=== PATIENT | male | born 1960 | race Caucasian/White ===

== ENCOUNTER 2019-10-09 08:15 | Outpatient (CLI) | payer BC, SELFPAY ==
[2019-10-09 08:46] LABS: Basophils Absolute Auto 0.1 K/mm3 (0.0-0.1); Basophils Percent Auto 1.1 % (0.2-1.2); Eosinophils Absolute Auto 0.4 K/mm3 (0-0.3); Eosinophils Percent Auto 3.3 % (0-4.4); Hematocrit 49.3 % (42.0-52.0); Hemoglobin 16.5 g/dL (14.0-18.0); Immature Granulocyte Absolute 0.04 K/mm3 (0.00-0.031); Immature Granulocyte Percent A 0.4 % (0-0.5); Lymphocytes Absolute Auto 3.17 K/mm3 (0.9-3.2); Lymphocytes Percent Auto 30.3 % (18.3-44.2); Mean Corpuscular HGB Conc 33.5 g/dl (32-36); Mean Corpuscular Hemoglobin 31.3 pg (26-34); Mean Corpuscular Volume 93.5 fl (80-100); Mean Platelet Volume 11.8 fl (7.4-10.4); Monocytes Absolute Auto 0.9 K/mm3 (0.1-0.6); Monocytes Percent Auto 8.9 % (2.6-8.5); Neutrophils Absolute Auto 5.9 K/mm3 (1.3-6.7); Platelet Count Result 184 k/mm3 (150-375); Red Blood Count 5.27 M/mm3 (4.6-6.20); Red Cell Distribution Width 13.5 % (11.5-14.5); White Blood Count 10.5 K/mm3 (4.5-10.0)
[2019-10-09 10:50] LABS: Alanine Aminotransferase 41 U/L (4-50); Albumin Level 4.3 g/dL (3.5-5.1); Alkaline Phosphatase 87 U/L (38-126); Aspartate Amino Transferase 33 U/L (17-59); Bilirubin,Total 0.6 mg/dL (0.2-1.3); Blood Urea Nitrogen 12 mg/dL (9-20); Calcium 9.2 mg/dL (8.4-10.2); Carbon Dioxide 23 mmol/L (22-30); Chloride 101 mmol/L (98-107); Estimated Glomerular Filt Rate > 60; Glucose 253 mg/dL (75-110); Potassium 4.1 mmol/L (3.4-5.0); Sodium 132 mmol/L (137-145)
[2019-10-09 12:26] LABS: Triglycerides 963 mg/dL (<150)
[2019-10-09 12:27] LABS: Cholesterol > 650 mg/dL (0-200); LDL Cholesterol Direct 133 mg/dL; Thyroid Stimulating Hormone > 100.000 uIU/mL (0.465-4.680)
== END 2019-10-09 08:16 | disposition home or self-care (01) ==
PROVIDERS: PCP Family Medicine; Visit Provider Physician Assistant Medical
DX: Z00.00 Encounter for general adult medical examination without abnormal findings (principal)
CPT/HCPCS: 36415; 80053; 80061; 84443; 85025

== ENCOUNTER 2020-01-13 08:47 | Outpatient (CLI) | payer BC, SELFPAY ==
[2020-01-13 09:43] LABS: Alanine Aminotransferase 41 U/L (4-50); Albumin Level 4.4 g/dL (3.5-5.1); Alkaline Phosphatase 68 U/L (38-126); Anion Gap 8 mmol/L (8-16); Aspartate Amino Transferase 30 U/L (17-59); Bilirubin,Total 0.5 mg/dL (0.2-1.3); Blood Urea Nitrogen 14 mg/dL (9-20); Calcium 9.1 mg/dL (8.4-10.2); Carbon Dioxide 25 mmol/L (22-30); Chloride 101 mmol/L (98-107); Cholesterol 298 mg/dL (0-200); Estimated Glomerular Filt Rate > 60; Glucose 265 mg/dL (75-110); HDL Direct 32 mg/dL; Potassium 4.1 mmol/L (3.4-5.0); Sodium 134 mmol/L (137-145); Triglycerides 457 mg/dL (<150)
[2020-01-13 09:54] LABS: LDL Cholesterol Direct 58 mg/dL
[2020-01-13 13:30] LABS: Hemoglobin A1C 10.9 % (<5.7)
== END 2020-01-13 08:48 | disposition home or self-care (01) ==
PROVIDERS: PCP Family Medicine; Visit Provider Family Medicine
DX: E11.9 Type 2 diabetes mellitus without complications (principal); E03.9 Hypothyroidism, unspecified
CPT/HCPCS: 36415; 80053; 80061; 83036; 84443

== ENCOUNTER 2020-04-25 10:27 | Outpatient (CLI) | payer BC, SELFPAY ==
[2020-04-25 11:30] LABS: Alanine Aminotransferase 27 U/L (4-50); Albumin Level 4.3 g/dL (3.5-5.1); Alkaline Phosphatase 66 U/L (38-126); Anion Gap 12 mmol/L (8-16); Aspartate Amino Transferase 26 U/L (17-59); Bilirubin,Total 0.5 mg/dL (0.2-1.3); Blood Urea Nitrogen 14 mg/dL (9-20); Calcium 9.9 mg/dL (8.4-10.2); Carbon Dioxide 21 mmol/L (22-30); Chloride 103 mmol/L (98-107); Cholesterol 195 mg/dL (0-200); Estimated Glomerular Filt Rate > 60; Glucose 102 mg/dL (75-110); HDL Direct 30 mg/dL; Potassium 4.4 mmol/L (3.4-5.0); Sodium 136 mmol/L (137-145); Triglycerides 355 mg/dL (<150)
[2020-04-25 11:41] LABS: LDL Cholesterol Direct 56 mg/dL
[2020-04-25 12:16] LABS: Hemoglobin A1C 7.1 % (<5.7)
[2020-04-25 12:17] LABS: Thyroid Stimulating Hormone Reflex < 0.015 uIU/mL (0.465-4.68)
[2020-04-25 13:42] LABS: Free T4 Free Thyroxine Reflex 2.66 ng/dL (0.78-2.19)
== END 2020-04-25 10:28 | disposition home or self-care (01) ==
LOC: ANHLAB 10:29
PROVIDERS: PCP Family Medicine; Visit Provider Family Medicine
DX: E78.5 Hyperlipidemia, unspecified (principal)
CPT/HCPCS: 36415; 80053; 80061; 83036; 84439; 84443

== ENCOUNTER 2020-05-06 08:15 | Emergency (ER) | payer BC, SELFPAY ==
--- NOTE | ~2020-05-06 | CT_ITS ---
EXAMINATION: CT brain wo con DATE: 05/06/2020 08:24 INDICATION: Right hemiparesis and aphasia TECHNIQUE: Computed tomography (CT) of the head was performed without intravenous contrast. Sagittal and coronal reconstructions were performed. The mA was adjusted according to patient size. Iterative reconstruction technique was employed. The dose-length product was 605.33 mGy-cm. COMPARISON: None FINDINGS: A few small regions of encephalomalacia in the anterior left frontal lobe, one in the anterior right frontal lobe and one in the right parietal lobe consistent with chronic infarcts. No acute intracrani al hemorrhage, acute infarction or abnormal extra axial fluid collection. There is however a hyperden se posterior branch of the left middle cerebral artery suspicious for acute thrombus. There is mild s cattered white matter hypoattenuation consistent with chronic small vessel ischemic disease. Ventricl es are normal and symmetric. No mass/mass effect. Intracranial calcified cerebral atherosclerosis is noted. Opacification of the small right sphenoid sinus. The orbits and mastoid air cells are normal. IMPRESSION: 1. Hyperdense posterior branch of the left middle cerebral artery suspicious for acute thrombus altho ugh there is no evident associated acute infarct although hyperacute infarcts can be occult on CT. Dr Ruthann Muñoz discussed these findings with Dr. Smart at 8:29 AM. 2. Several small region of encephalomalacia consistent with chronic infarcts in the lateral frontal l obe and right parietal lobe. 3. Mild scattered white matter hypoattenuation consistent with chronic small vessel ischemic disease. Reviewed, dictated and finalized at location A. OMER ASSISTANCE ASSOCIATE IMPRESSION: 1. Hyperdense posterior branch of the left middle cerebral artery suspicious fo r acute thrombus although there is no evident associated acute infarct although hyperacute infarcts can be occult on CT. Dr. Muñoz discussed these findings with Dr. Smart at 8:29 AM. 2. Several small region of encephalomalacia consistent with chronic infarcts in the lateral frontal lobe and right parietal lobe. 3. Mild scattered white matter hypoattenuation consistent with chronic small ve ssel ischemic disease.
--- NOTE | ~2020-05-06 | CT_ITS ---
EXAMINATION: CTA brain carotid DATE: 05/06/2020 09:38 INDICATION: Right hemiparesis. Aphasia. TECHNIQUE: Computed tomographic angiography (CTA) of the head was performed with 100 mL Omnipaque-350 intravenous contrast. CTA of the neck was performed with intravenous contrast. Automated exposure co ntrol and iterative reconstruction technique were employed. The dose-length product was 1104.80 mGy-c m. Maximum intensity projection and volume rendered 3D-reconstructions were created by the dana moreno on a separate workstation. COMPARISON: Head CT 05/06/2020 FINDINGS: HEAD CTA: There are infarcts in the left frontal lobe and right frontal and parietal lobes. There is no intracranial hemorrhage or abnormal intracranial mass lesion. The ventricles are normal in size. T he mastoid air cells are normal. The orbits are normal. The paranasal sinuses are clear. Left vertebr al artery is dominant. There is no significant stenosis of basilar artery or the posterior cerebral a rteries. The column of contrast in right internal carotid artery is very small and ends in cavernous carotid artery. There is reconstitution of flow in supraclinoid internal carotid artery. There is tot al occlusion of cervical left internal carotid artery. There is reconstitution of flow in the petrous segment of the internal carotid artery. There is mild stenosis of the distal internal carotid artery . There is thrombus in an M2 branch of left middle cerebral artery that was hyperdense on the noncont rast CT. There is no significant stenosis of the anterior cerebral arteries. Anterior communicating a rtery is normal. The posterior communicating arteries are normal. There is no aneurysm. NECK CTA: There is mild emphysema. There are no pathologically enlarged lymph nodes. There is mild st enosis of proximal left coronary artery. There is no significant stenosis of the vertebral arteries. There is near-occlusion stenosis of proximal right internal carotid artery by NASCET criteria. There is total occlusion of left cervical internal carotid artery. There is moderate cervical spondylosis. IMPRESSION: 1. Age-indeterminate infarcts in the left frontal lobe and right frontal and parietal lobes. 2. Thrombus in a left M2 middle cerebral artery branch. 3. Near-occlusion stenosis of cervical right internal carotid artery. Total occlusion of cavernous ri ght internal carotid artery with supraclinoid reconstitution. 4. Total occlusion of cervical left internal carotid artery with petrous reconstitution. Reviewed, dictated and finalized at location B. SHER DIAL IMPRESSION: 1. Age-indeterminate infarcts in the left frontal lobe and right frontal and pa rietal lobes. 2. Thrombus in a left M2 middle cerebral artery branch. 3. Near-occlusion stenosis of cervical right internal carotid artery. Total occ lusion of cavernous right internal carotid artery with supraclinoid reconstitut ion. 4. Total occlusion of cervical left internal carotid artery with petrous recons titution.
--- NOTE | ~2020-05-06 | XR_ITS ---
EXAMINATION: XR chest 1V portable DATE: 05/06/2020 09:06 INDICATION: Right hemiparesis TECHNIQUE: frontal view of the chest was obtained. COMPARISON: Chest radiograph dated 12/11/2011 FINDINGS: The lungs remain clear with no focal airspace opacities, pulmonary edema, pleural effusion or pneumot horax. The cardiomediastinal silhouette is normal. IMPRESSION: 1. No acute cardiopulmonary disease. Reviewed, dictated and finalized at location A. ATOR RUNNER
--- NOTE | 2020-05-06 08:18 | ECG_ITS ---
Measurements Intervals [place] Rate: 103 P: 77 NV: 132 QRS: 82 QRSD: 105 T: 20 QT: 354 QTc: 465 Interpretive Statements SINUS TACHYCARDIA POSSIBLE LEFT ATRIAL ENLARGEMENT MINIMAL Q WAVES- INFERIOR LEADS BORDERLINE ST ABNORMALITY- INF/LAT LEADS BORDERLINE ECG Electronically Signed On 05-06-2020 8:37:28 RN LONG TERM CARE by Rosalino Greene D.O.
--- NOTE | 2020-05-06 08:32 | ED.NEUROSD ---
HPI - Neuro Symptoms/Deficit General Chief Complaint: Suspected CVA Stated Complaint: poss cva Time Seen by Provider: 05/06/20 08:16 Source: RN notes reviewed History of Present Illness HPI Narrative: Patient presents to emergency department from home for CVA. Patient's states the patient got up as normal this morning and was acting fine approximate 45 minutes ago at approximately 7:45 AM he was sitting at the table when he began to have difficulty speaking as well as she noted some right-sided facial droop and weakness in his right arm. Patient has been having some feelings of heaviness and weakness in his right side for the past 4 to 5 weeks has been worked up by his PCP was felt to have early Parkinson's and recently started on carbidopa levodopa. Patient was acting like his normal self this morning the states when he started to act funny she did check his blood sugar was 67 at that time which she did give him some juice and states she did notice mild improvement but then symptoms again worsen patient is not currently on any blood thinners she denies any previous history of stroke Related Data Home Medications Medication Instructions Recorded Confirmed metformin 500 mg tablet,extended 500 mg PO QPM 10/12/19 05/04/20 release 24 hr psyllium husk 3.4 gram/5.4 gram 1 tbsp PO DAILY 05/04/20 05/04/20 oral powder Allergies Allergy/AdvReac Type Severity Reaction Status Date / Time No Known Allergies Allergy Unknown Verified 05/04/20 14:06 Review of Systems Review of Systems: Narrative: Gen.: Denies fevers or chills Eyes: Denies eye pain or visual change ENT: Denies congestion Respiratory: Denies shortness of breath or cough CV: Denies chest pain or palpitations GI: Denies abdominal pain nausea, emesis or diarrhea Musculoskeletal: Denies back pain or muscle pain Neuro: See HPI Skin: Denies rash Except as documented, all other systems reviewed and negative [facility] Past Medical History Medical History (Updated 05/06/20 @ 12:55 by Praneeth Smart DO) Overweight (BMI 25.0-29.9) Parkinsonian features Type 2 diabetes mellitus without complications Umbilical hernia Social History Social History Smoking packs per day: 1.5 Smoking cigarettes per day: 30.0 Years smoked: 40 Smoking pack-years: 60.00 Smoking status: Current every day smoker Tobacco type: cigarettes Alcohol intake: current Exam Narrative: Exam Narrative: APPEARANCE: No acute distress, nontoxic, resting in bed EYES: EOMI, PERRL HEENT: Normocephalic, atraumatic, OMM RESPIRATORY: No respiratory distress Clear to auscultation bilaterally with no rhonchi wheezing or rales. CARDIOVASCULAR: Regular rate and rhythm without murmurs rubs or gallops. ABDOMINAL: Soft, nontender, nondistended, no rebound or guarding MUSCULOSKELETAl: Moves all extremities. No clubbing, cyanosis or edema. NEURO: Awake and alert. Following commands, speech normal, no focal deficits SKIN:: Warm, dry. No rashes lesions or abrasions PSYCHIATRIC: Normal affect/mood, Course Course Emergency Course: After another shoulder evaluation patient been reevaluated proximally 15 minutes later with complete resolution of his symptoms no talking in full sentences Called and discussed with Dr. Rodas at [facility] for stroke. Recommend CTA at this time Patient with waxing and waning symptoms he had a another episode of return of symptoms that then improved and then symptoms again now are present and persist Called back and discussed with Dr. Rodas who reviewed the patient's CT and CTA. At this time with stroke seen on CTA does NOT recommend any TPA be given. She does request the patient be transferred to the [facility] emergency department for evaluation for possible IR intervention Discussed with patient and family need for transfer in agreement at this time we discussed my conversations with Dr. Rodas and rec
[2020-05-06 08:34] VITALS: BP 145/81; PULSE 128; RESP 21; TEMP 36.7; O2SAT 21; O2SAT 99
[2020-05-06 09:04] LABS: Basophils Absolute Auto 0.1 K/mm3 (0.0-0.1); Basophils Percent Auto 0.9 % (0.2-1.2); Eosinophils Absolute Auto 0.2 K/mm3 (0-0.3); Eosinophils Percent Auto 1.7 % (0-4.4); Hemoglobin 17.8 g/dL (14.0-18.0); Immature Granulocyte Absolute 0.02 K/mm3 (0.00-0.031); Immature Granulocyte Percent A 0.2 % (0-0.5); Lymphocytes Absolute Auto 2.73 K/mm3 (0.9-3.2); Lymphocytes Percent Auto 30.4 % (18.3-44.2); Mean Corpuscular HGB Conc 33.6 g/dl (32-36); Mean Corpuscular Volume 92.3 fl (80-100); Mean Platelet Volume 11.5 fl (7.4-10.4); Monocytes Percent Auto 10.8 % (2.6-8.5); Platelet Count Result 249 k/mm3 (150-375); Red Blood Count 5.74 M/mm3 (4.6-6.20); Red Cell Distribution Width 13.1 % (11.5-14.5)
[2020-05-06 09:15] LABS: Anion Gap 16 mmol/L (8-16); Blood Urea Nitrogen 14 mg/dL (9-20); Carbon Dioxide 21 mmol/L (22-30); Chloride 103 mmol/L (98-107); Estimated CRCL calculation 103 ml/min; Estimated Glomerular Filt Rate > 60; Glucose 204 mg/dL (75-110); Potassium 3.6 mmol/L (3.4-5.0); Sodium 140 mmol/L (137-145)
[2020-05-06 09:16] LABS: INR 0.9; Prothrombin Time 13.2 Seconds (11.1-14.7)
[2020-05-06 09:17] LABS: Partial Thromboplastin Time 26.4 SECONDS (22.3-36.8)
[2020-05-06 09:20] LABS: Glucose Point of Care 199 (65-105)
[2020-05-06 09:27] LABS: Troponin I < 0.012 ng/mL (0.000-0.034)
[2020-05-06 09:48] VITALS: BP 126/67; PULSE 87; RESP 20; O2SAT 97
--- NOTE | 2020-05-06 10:28 | PC.NURSE ---
Pt called out and states that pt is getting worse. This RN in room. Pt has increased right sided facial drooping and increased grabbled, slurred speech. When pt arrived pt was able to give and state where he was. Pt is now unable to clearly state his and where he is at. Informed Dr. Smart of this. Dr. Smart stated that pt needed to lay flat on his back. This RN placed bed flat. Informed pt that wanted pt to lay flat.
--- NOTE | 2020-05-06 11:38 | PC.NURSE ---
[facility] accepted transfer to [facility] ETA 30 min Trip#[id number]
--- NOTE | 2020-05-06 12:14 | PC.NURSE ---
V [id number] Transfer to [facility] per Dr Flowers a weather check was done for an aircraft. [facility] [address] Dominguez talked with [facility] and they decided ground transportation . [facility] cancelled. [facility] was called for transfer ETA 30min Trip # [id number] dispatch stated that as soon as ALS crew cleared [place] they would take call. At 1205 today [facility] called for update Dispatch stated that the crew that was here got kicked on a 911 and our transfer would be at least 90min. Per Dr Flowers I was told to upgrade [facility] to light and sirens.
--- NOTE | 2020-05-06 12:22 | PC.NURSE ---
[facility] arrived for transfer to [facility] [id number]
--- NOTE | 2020-05-06 12:23 | PC.NURSE ---
[facility] had No ALS truck
== END 2020-05-06 12:30 | disposition short-term general hospital (02) ==
PROVIDERS: Emergency Provider Emergency Medicine; PCP Family Medicine
DX: I63.9 Cerebral infarction, unspecified (principal); E11.9 Type 2 diabetes mellitus without complications; Z79.84 Long term (current) use of oral hypoglycemic drugs; E66.3 Overweight; Z68.26 Body mass index [BMI] 26.0-26.9, adult; F17.210 Nicotine dependence, cigarettes, uncomplicated; R29.708 NIHSS score 8; R00.0 Tachycardia, unspecified; R94.31 Abnormal electrocardiogram [ECG] [EKG]; I66.09 Occlusion and stenosis of unspecified middle cerebral artery; I65.23 Occlusion and stenosis of bilateral carotid arteries
CPT/HCPCS: 36415; 70450; 70496; 70498; 71045; 80048; 82948; 84484; 85025; 85610; 85730; 93005; 99285; Q9967

== ENCOUNTER 2020-07-26 08:01 | Outpatient (CLI) | payer BC, SELFPAY ==
[2020-07-26 08:46] LABS: Alanine Aminotransferase 26 U/L (4-50); Albumin Level 3.9 g/dL (3.5-5.1); Alkaline Phosphatase 99 U/L (38-126); Anion Gap 13 mmol/L (8-16); Aspartate Amino Transferase 25 U/L (17-59); Bilirubin,Total 0.6 mg/dL (0.2-1.3); Blood Urea Nitrogen 10 mg/dL (9-20); Calcium 9.4 mg/dL (8.4-10.2); Carbon Dioxide 23 mmol/L (22-30); Chloride 105 mmol/L (98-107); Cholesterol 93 mg/dL (0-200); Estimated Glomerular Filt Rate > 60; Glucose 112 mg/dL (75-110); HDL Direct 21 mg/dL; Potassium 3.8 mmol/L (3.4-5.0); Sodium 141 mmol/L (137-145); Triglycerides 123 mg/dL (<150)
[2020-07-26 08:57] LABS: LDL Cholesterol Direct 36 mg/dL
[2020-07-26 09:00] LABS: Hemoglobin A1C 6.6 % (<5.7)
[2020-07-26 09:44] LABS: Thyroid Stimulating Hormone Reflex < 0.015 uIU/mL (0.465-4.68)
[2020-07-26 11:41] LABS: Free T4 Free Thyroxine Reflex 2.38 ng/dL (0.78-2.19)
== END 2020-07-26 08:02 | disposition home or self-care (01) ==
PROVIDERS: PCP Family Medicine; Visit Provider Family Medicine
DX: E78.5 Hyperlipidemia, unspecified (principal)
CPT/HCPCS: 36415; 80053; 80061; 83036; 84439; 84443

== ENCOUNTER 2020-08-05 15:31 | Outpatient (CLI) | payer BC, SELFPAY | END 2020-08-05 15:32 | disposition home or self-care (01) | LOC: ANHCOVIDVC 15:31 | PROVIDERS: PCP Family Medicine | DX: Z23 Encounter for immunization (principal) | CPT/HCPCS: 0001A; 91300 ==

== ENCOUNTER 2020-08-26 15:29 | Outpatient (CLI) | payer BC, SELFPAY | END 2020-08-26 15:30 | disposition home or self-care (01) | LOC: ANHCOVIDVC 15:29 | PROVIDERS: PCP Family Medicine | DX: Z23 Encounter for immunization (principal) | CPT/HCPCS: 0002A; 91300 ==

== ENCOUNTER 2020-10-10 07:26 | Outpatient (CLI) | payer BC, SELFPAY ==
[2020-10-10 08:29] LABS: Thyroid Stimulating Hormone < 0.015 uIU/mL (0.465-4.680)
== END 2020-10-10 07:27 | disposition home or self-care (01) ==
PROVIDERS: PCP Family Medicine; Visit Provider Family Medicine
DX: E03.9 Hypothyroidism, unspecified (principal)
CPT/HCPCS: 36415; 84443

== ENCOUNTER 2020-12-21 19:23 | Emergency (ER) | payer BC, SELFPAY ==
--- NOTE | ~2020-12-21 | XR_ITS ---
EXAMINATION: XR chest 1V portable INDICATION: Cough TECHNIQUE: Portable AP chest at 1937 hours COMPARISON: 05/06/2020 FINDINGS: The lungs are free of acute opacities. There is no pleural effusion or pneumothorax. The ca rdiomediastinal silhouette is normal. IMPRESSION: 1. No acute cardiopulmonary abnormality. Reviewed, dictated and finalized at location A.
[2020-12-21 19:24] VITALS: BP 117/75; PULSE 80; RESP 18; TEMP 36.7; O2SAT 93
--- NOTE | 2020-12-21 19:30 | ECG_ITS ---
Measurements Intervals [place] Rate: 82 P: 76 HI: 169 QRS: 75 QRSD: 94 T: 53 QT: 391 QTc: 457 Interpretive Statements SINUS RHYTHM MINIMAL Q WAVES- INFERIOR LEADS BORDERLINE ECG Electronically Signed On 12-21-2020 19:48:52 CDT by Rosalino Greene D.O.
--- NOTE | 2020-12-21 19:31 | ED.GENADULT ---
HPI - General Adult General Chief complaint: Unspecified Stated complaint: unresponsiveness History of Present Illness HPI narrative: 60 yo male w/ h/o CVA, DM, htn presents to the ED for unresponsive episode. He was sitting on the couch when he had a a fit of coughing. His then noted that he was staring blankly then his eyes rolled up and to the right. He would not respond to her. This lasted about 1-2 minutes. The patient says he remembers feeling strange and dizzy. His vision then went black. He does not believe that he ever lost consciousness. He denies any other complaints. History is somewhat limited by expressive aphasia Related Data Home Medications Medication Instructions Recorded Confirmed aspirin 325 mg tablet 325 mg PO DAILY 07/15/20 10/28/20 lansoprazole 30 mg capsule,delayed 30 mg PO DAILY 07/15/20 10/28/20 release memantine 5 mg tablet 5 mg PO QAM 07/15/20 10/28/20 Allergies Allergy/AdvReac Type Severity Reaction Status Date / Time No Known Allergies Allergy Unknown Verified 12/21/20 19:45 Review of Systems Review of Systems: All systems reviewed & are unremarkable except as noted in HPI and below Constitutional: Constitutional: Denies chills and Denies fever(s) Eyes: Eyes: Reports as per HPI ENT: Reports system reviewed and no additional complaints, except as documented Cardiovascular: Cardiovascular: Denies chest pain and Denies palpitations Respiratory: Respiratory: Reports cough and Denies dyspnea Gastrointestinal: Gastrointestinal: Denies abdominal pain and Denies nausea Genitourinary: Genitourinary: Reports no additional male genitourinary complaints Musculoskeletal: Musculoskeletal: Denies back pain Neurologic: Reports as per HPI [facility] Past Medical History Medical History Acute right MCA stroke Dysphagia as late effect of cerebrovascular accident (CVA) Expressive aphasia Gastrostomy tube in place Hemiparesis affecting right side as late effect of cerebrovascular accident (CVA) Overweight (BMI 25.0-29.9) Parkinsonian features Type 2 diabetes mellitus without complications Umbilical hernia Social History Social History Smoking packs per day: 1.5 Smoking cigarettes per day: 30.0 Years smoked: 40 Smoking pack-years: 60.00 Tobacco type: cigarettes Alcohol intake: current Gender identity (if verbalized by the patient): Male Exam Const: General: healthy appearing, no acute distress and alert Orientation/consciousness: patient oriented x3 HENMT: Head: normal to inspection Neck: Neck: normal visual inspection and no lymphadenopathy Chest: Chest palpation & inspection: no tenderness Resp: Effort & Inspection: normal respiratory effort Auscultation: clear to auscultation bilaterally, no rales, no rhonchi and no wheezes Cardio: Jugular venous distension: no JVD Rate: regular rate Rhythm: regular rhythm Heart sounds: no murmurs GI: Inspection: non-distended GI Palp: Yes Soft to palpation and No Tenderness to palpation present (GI) Skin: General skin exam: normal color Neuro: General: patient oriented x3 and moves all extremities Speech: Expressive aphasia present Extrem: General: no edema Other: right hemiparesis Psych: Appearance: well kempt Affect: normal affect Course Vital Signs Vital signs: Vital Signs Temperature 36.7 C 12/21/20 19:24 Pulse Rate 80 12/21/20 19:24 Respiratory Rate 18 12/21/20 19:24 Blood Pressure 117/75 12/21/20 19:24 Pulse Oximetry 93 12/21/20 19:24 Temperature 36.7 C 12/21/20 19:24 Pulse Rate 80 12/21/20 19:24 Respiratory Rate 18 12/21/20 19:24 Blood Pressure 117/75 12/21/20 19:24 Pulse Oximetry 93 12/21/20 19:24 Medical Decision Making Medical Records Medical records reviewed: Yes I reviewed the external patient's medical records. Vital Signs Vital Signs
[2020-12-21] MEDS: SODIUM CHLORIDE 0.9% IV 1,000 ML 999 ML IV CONT (19:50)
[2020-12-21 19:55] LABS: Basophils Absolute Auto 0.1 K/mm3 (0.0-0.1); Basophils Percent Auto 0.7 % (0.2-1.2); Eosinophils Absolute Auto 0.2 K/mm3 (0-0.3); Eosinophils Percent Auto 2.1 % (0-4.4); Hematocrit 45.6 % (42.0-52.0); Hemoglobin 14.9 g/dL (14.0-18.0); Immature Granulocyte Absolute 0.02 K/mm3 (0.00-0.031); Immature Granulocyte Percent A 0.2 % (0-0.5); Lymphocytes Absolute Auto 2.78 K/mm3 (0.9-3.2); Lymphocytes Percent Auto 34.2 % (18.3-44.2); Mean Corpuscular HGB Conc 32.7 g/dl (32-36); Mean Corpuscular Hemoglobin 30.5 pg (26-34); Mean Corpuscular Volume 93.4 fl (80-100); Mean Platelet Volume 10.9 fl (7.4-10.4); Monocytes Absolute Auto 0.7 K/mm3 (0.1-0.6); Monocytes Percent Auto 8.7 % (2.6-8.5); Neutrophils Absolute Auto 4.4 K/mm3 (1.3-6.7); Neutrophils Percent Auto 54.1 % (45.5-73.1); Platelet Count Result 229 k/mm3 (150-375); Red Blood Count 4.88 M/mm3 (4.6-6.20); Red Cell Distribution Width 13.1 % (11.5-14.5); White Blood Count 8.1 K/mm3 (4.5-10.0)
[2020-12-21 20:04] LABS: Anion Gap 14 mmol/L (8-16); Blood Urea Nitrogen 23 mg/dL (9-20); Calcium 9.5 mg/dL (8.4-10.2); Carbon Dioxide 22 mmol/L (22-30); Chloride 102 mmol/L (98-107); Estimated CRCL calculation 102 ml/min; Estimated Glomerular Filt Rate > 60; Glucose 241 mg/dL (65-110); Potassium 4.1 mmol/L (3.4-5.0); Sodium 138 mmol/L (137-145)
[2020-12-21 21:32] VITALS: BP 114/81; PULSE 67; RESP 17; O2SAT 94
[2020-12-21 23:01] VITALS: BP 106/87; PULSE 66; RESP 19; O2SAT 96
== END 2020-12-21 23:03 | disposition home or self-care (01) ==
PROVIDERS: Emergency Provider Emergency Medicine; PCP Family Medicine
DX: R55 Syncope and collapse (principal); E11.9 Type 2 diabetes mellitus without complications; F17.210 Nicotine dependence, cigarettes, uncomplicated
CPT/HCPCS: 36415; 71045; 80048; 85025; 93005; 96360; 99284; J7030

== ENCOUNTER 2021-01-25 12:30 | Outpatient (RCR) | payer BC, SELFPAY ==
[2020-11-04 08:37] VITALS: BP_SYST 90
--- NOTE | 2020-11-04 09:37 | OTOPEVAL ---
OCCUPATIONAL THERAPY INITIAL EVALUATION REPORT 11/04/20 Thank you for referring Osmani Harden to [facility].? The patient is scheduled to be seen for therapy? 2x/week for 5 weeks. Please review, sign, date and return this plan of care LIZZIE. I agree with and certify that the following plan of care is medically necessary. Referring Physician Date Referring Provider: Lebron Goff MD *OT Outpatient Evaluation Start: 11/04/20 08:37 Therapy Assessment Status Assessment Status Assessment Status Evaluation Outpatient Past Medical History Past Medical History Source of Past Medical History Recalled from Previous Visit, Confirmed with Patient/Family Neurological History Hx Cerebrovascular Accident (CVA) Yes: 05/06/20 Cardiovascular History Hx Cardiac Disorders No Significant History Respiratory History Hx Respiratory Disorders No Significant History Gastrointestinal History Hx Gastrointestinal Disorders No Significant History Genitourinary History Hx Genitourinary Disorders No Significant History Musculoskeletal History Hx Other Musculoskeletal Disorders Yes: Right RTC surgery Hematological History Hx Hematological Disorders No Significant History Endocrine History Hx Diabetes Yes Hx Hypothyroidism Yes HEENT History Hx HEENT Disorders No Significant History Integumentary History Hx Skin Disorders No Significant History Reproductive History Hx Reproductive Disorders No Significant History Psychosocial History Hx Psychiatric Disorders No Significant History Pain History History of Any Previous or Ongoing No Significant History Instance of Pain Anesthesia History Hx Anesthesia Reactions No Significant History Evaluation Information Problem Diagnosis CVA Onset 05/06/2020 Subjective Information Patient is s/p acute care at Query Text:As Reported By Patient/ Lili ~2 weeks, transferred Family to [facility] ~2 months, and ~3 months of home health therapy. He has been receiving OT, PT, and ST. He is here today with his , Crista. He has some garbled speech and his reports all history. Prior Level of Function Activity Level (Last 3 Months) Occupation Was laid of 2/2 COVID. Hand Dominance Right Activity of Daily Living Ability Needs Some Help Indoor/Home Mobility Needs Some Help Community Mobility Needs Some Help Stairs Ability Dependent Cooking No Cleaning No Laundry
--- NOTE | 2020-11-04 10:49 | PTOPEVAL ---
PHYSICAL THERAPY EVALUATION AND PLAN OF CARE 11-04-20 Thank you for referring Osmani Harden to [facility].? Pato is scheduled to be seen for therapy? 2 x/week for 5 weeks. Please review, sign, date and return this plan of care LIZZIE. I agree with and certify that the following plan of care is medically necessary. Referring Physician Date Attending Provider: Lebron Goff MD PT Outpatient Evaluation Document 11/04/20 09:25 ALEXUS (Rec: 11/04/20 10:49 ALEXUS [id number]) Past Medical History Source of Past Medical History Family/Significant Other Musculoskeletal History Hx Orthopedic Surgery Yes: R rotator cuff surgery 2006 Hematological History Hx Hematological Disorders No Significant History Endocrine History Hx Diabetes Yes Hx Hypothyroidism Yes Hx Other Medical Conditions Yes: had COVID vaccine Evaluation Information Problem Diagnosis CVA with R weakness Onset May 06, 2020 Subjective Information since CVA have had in pt rehab Query Text:As Reported By Patient/ and [facility]; discharged from [facility] Family about 2 weeks; continues to do leg exercises from [facility]; Prior Level of Function Activity Level (Last 3 Months) 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;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 Dominance Right Activity of Daily Living Ability Independent Indoor/Home Mobility Independent Community Mobility Independent Stairs Ability Independent Functional Cognition (Planning, Shopping Independent , Taking Medications) Cooking Yes Cleaning Yes Laundry Yes Shopping Yes Driving Yes Home Setting Home Type House Environmental Barriers Ramp Living Situation With Spouse Mobility Assistive Devices (Used Last 3 Cane, Large Based Quad,Lift, Months) Chair,Wheelchair, Manual Orthotic/Prosthetic Devices Right Upper Extremity Orthosis ,Right Lower Extremity Orthosis Bathroom Environment Bathtub, Standard Bathing Equipment Grab Bars,Hand Held Shower,Tub Seat With Back Comments Additional Prior Level of Function since CVA, living with his in- Comments laws, who have a more accessible home; works from home, she is
--- NOTE | 2020-11-04 15:01 | STOPEVAL ---
SPEECH THERAPY INITIAL EVALUATION: Thank you for referring Osmani Harden to [facility].? The patient is scheduled to be seen for therapy? 2x/week for 5 weeks. Please review, sign, date and return this plan of care LIZZIE. I agree with and certify that the following plan of care is medically necessary. Referring Physician Date Attending Provider: Lebron Goff MD Outpatient Past Medical History Past Medical History Source of Past Medical History Recalled from Previous Visit, Confirmed with Patient/Family Neurological History Hx Cerebrovascular Accident (CVA) Yes: 05/06/20 Cardiovascular History Hx Cardiac Disorders No Significant History Respiratory History Hx Respiratory Disorders No Significant History Gastrointestinal History Hx Other Gastrointestinal Disorders Yes: recent removal of PEG r/t dysphagia Genitourinary History Hx Genitourinary Disorders No Significant History Musculoskeletal History Hx Other Musculoskeletal Disorders Yes: Right RTC surgery Hematological History Hx Hematological Disorders No Significant History Endocrine History Hx Diabetes Yes Hx Hypothyroidism Yes HEENT History Hx HEENT Disorders No Significant History Integumentary History Hx Skin Disorders No Significant History Reproductive History Hx Reproductive Disorders No Significant History Psychosocial History Hx Psychiatric Disorders No Significant History Pain History History of Any Previous or Ongoing No Significant History Instance of Pain Anesthesia History Hx Anesthesia Reactions No Significant History Evaluation Information Problem Diagnosis CVA Onset 05/06/2020 Subjective Information Patient is s/p acute care at Query Text:As Reported By Patient/ [facility] ~2 weeks, transferred Family to [facility] [place] ~2 months, and ~3 months of home health therapy. He has been receiving OT, PT, and ST. He is here today with his , Crista. He has some garbled speech and his reports all history. Prior Level of Function Activity Level (Last 3 Months) Occupation Was laid off 2/2 COVID. Hand Dominance Right Activity of Daily Living Ability Needs Some Help Indoor/Home Mobility Needs Some Help Community Mobility Needs Some Help Cooking No Cleaning No Laundry No Shopping No Driving No Home Setting Home Type House,Multiple Levels En
--- NOTE | 2020-12-01 17:11 | STOPEVAL ---
SPEECH THERAPY PROGRESS NOTE AND PLAN OF CARE UPDATE: Thank you for referring Osmani Harden to [facility].? The pt is exhibiting progress in speech and language. The patient is scheduled to be seen for therapy?x2/week for 5 weeks. Please review, sign, date and return this plan of care LIZZIE. I agree with and certify that the following plan of care is medically necessary. Referring Physician Date Attending Provider: Lebron Goff MD * Language RE Evaluation Auditory Comprehension Complex Yes/No Questions (% Accuracy (0- 80 100)) Auditory Comprehension of Complex 100 Directives (% Accuracy (0-100)) Auditory Comprehension of Simple 100 Paragraphs (% Accuracy (0-100)) Overall Auditory Comprehension Ability Mild Deficits Additional Auditory Comprehension As a result of therapy pt has Comments improved in the following: - Respond to complex yes/no questions with 75% accuracy: MET - Respond to complex level directives with 80% accuracy: MET - Respond to simple paragraph level information with 90% accuracy: MET Reading Comprehension Comprehension: 5-7 Words (% Accuracy (0- 91 100)) Comprehension of Simple Paragraphs (% 80 Accuracy (0-100)) Reading Comprehension Comments as a result of therapy pt has achieved the following: Demonstrates comprehension of 5-7 word statements, questions , &/or directives with 91% accuracy and demonstrated ability to comprehend complex information in sentences with 85-90% accuracy Response Latency Mild Deficits Overall Reading Comprehension Ability mild/mod Verbal Expression Earth Speech WFL Automatic Cued Speech (% Accuracy (0-100 100 )) Open Ended Cued Speech (% Accuracy (0- 60 100)) WH Questions (% Accuracy (0-100)) 60 Stating Object Function (% Accuracy (0- 80 100)) Factors Limiting Verbal Function Aphasia,Apraxia Overall Verbal Expression Ability mod/severe Comments Related to Verbal Expression severe decline in intelligibility is exhibited. word retrieval/anomia is improving. Apraxia Evaluation Apraxia Evaluation Oral Volitional Movement (%) 100 Oral Volitional Comments pt was able to recognize errors and self
[2020-12-08 12:59] VITALS: BP_SYST 90
--- NOTE | 2020-12-08 13:40 | OTOPEVAL ---
OCCUPATIONAL THERAPY RE-EVALUATION AND DISCHARGE SUMMARY 12/08/20 Patient presents today for OT re-evaluation following 5 weeks of outpatient OT focused on ROM and neuromuscular facilitation to the right hemiparetic UE. Unfortunately the patient has not shown progress toward improved functional strength. Patient's flexibility has remained WFL and he is able to complete self-passive ROM. He and his are independent with positioning strategies and splint schedule to help inhibit future contractures. No further skilled OT indicated at this time. D/C with patient independent with HEP. Thank you for referring Osmani Harden to [facility]. Please review, sign, date and return this D/C Note LIZZIE. I agree with and certify that the following plan of care is medically necessary. Referring Physician Date Referring Provider: Lebron Goff MD Evaluation Information Problem Diagnosis CVA Onset 05/06/2020 Subjective Information Pato Keen , has Query Text:As Reported By Patient/ participated in 8 outpatient Family OT sessions for right sided hemiplegia s/p CVA. Treatment interventions include education on positioning, passive ROM, weight bearing and muscle facilitory techniques to try to improve right UE strength and ROM. Right shoulder continues to be subluxed 1 finger width. Pato is aphasic and has difficulty describing how ADLs are going at home, but nods yes when asked if bathing, dressing, and toileting tasks are getting easier for him. He also reports that his passive ROM HEP is going well and has gotten easier for him to complete. He states he does his HEP ~2x/week. Pain Assessment Timing of Pain Assessment Timing of Pain Assessment Assessment Pain Scale Pain Scale Used Numeric (1 - 10) Self Report Pain Assessment Right Shoulder(s) Reported Pain Level 0 Lowest Pain Intensity 0 Greatest Pain Intensity 6 Pain Aggravating Factors Exercise/Activity Pain Score Pain Score 0: Self Report Upper Extremity Range of Motion General Upper Extremity Range of Motion Gross Upper Extremity Range of Motion (R) shoulder is subluxed 1 Comments finger width. Scapular/ Shoulder Range of Motion Right Shoulder Flexion - Active 0 Shoulder Flexion - Passive 90 Shoulder Extension - Active 0 Shoulder Abduction - Active
--- NOTE | 2020-12-08 15:02 | PTOPEVAL ---
PHYSICAL THERAPY DISCHARGE 12-08-20 Refer to the clinical summary below, for his status today, compared to the initial evaluation. His improvements for PT were minimal-- met goal for hip adduction strength in supine, no falls and home exercise program education. He has a home exercise program and is walking short distances with the small based quad cane and CGA. Discharge was discussed with his and she was disappointed, stating that she wanted him to continue PT treatments. Discussed with her that his status is about the same as the initial eval and to continue therapy, we have to justify with improvements and changes in his status. Reinforced to her that he needs to continue with the leg exercises at home, walking as much as he can and if he starts to have more strength in R leg or something changes, PT can resume with a new physician's order. Thank you for referring Osmani Harden to [facility].? Please review, sign, date and return this Discharge Report LIZZIE. I agree with and certify that the following plan of care is medically necessary. Referring Physician Date Attending Provider: Lebron Goff MD Document 12/08/20 13:55 ALEXUS (Rec: 12/08/20 15:02 ALEXUS [id number]) Assessment Status Discharge Pain Assessment Timing of Pain Assessment Timing of Pain Assessment Assessment Self Report Self Report Pain Level 0 Pain Score Pain Score 0: Self Report Lower Extremity Muscle Strength Testing General Lower Extremity Strength Gross Lower Extremity Strength functional strength R LE: supine: heel slide with hip flex to 10'; hip abduction unable to perform; hip adduction 3-/5; knee and ankle no active motion; bridge x 20 reps, lift ~ 75% range; Transfer Assessment Chair Transfer Assessment Ambulation Assistive Devices None Chair Transfer Destination w/c <> mat Chair Transfer Technique Stand Step Pivot Cues Needed for Chair Transfer None Bed Mobility Assessment Bed Mobility Bed Type Mat Supine to Sit Ability Standby Assistance Sit to Supine Ability Minimum Assistance X 1 Cues Needed for Bed Mobility Tactile Bed Mobility Comments sit to supine, requires assist with trunk and R LE; supine to sit, hook L LE under R LE and used momentum and LE's hooked on edge of mat, to assist raising trunk to upright Balance Assessment Tinetti Balance Assessment Sitting Balance Steady, safe Ability to Arise Able, w/o using arms Attempts to Arise Able, requires >1 attempt Immediate Standing Balance Steady with support Standing Balance Steady, wide stance Nudged Response
--- NOTE | 2021-01-05 13:52 | STOPEVAL ---
SPEECH THERAPY RE EVALUATION AND PLAN OF CARE UPDATE: Thank you for referring Osmani Harden to [facility].? The patient is scheduled to be seen for therapy?2x/week for 4 weeks. Please review, sign, date and return this plan of care LIZZIE. I agree with and certify that the following plan of care is medically necessary. Referring Physician Date Attending Provider: Lebron Goff MD Language Evaluation Auditory Comprehension Auditory Comprehension of Moderate 100 Paragraphs (% Accuracy (0-100)) Auditory Comprehension of Complex 100 Paragraphs (% Accuracy (0-100)) Additional Auditory Comprehension within functional limits; no Comments further goals at this time Reading Comprehension Comprehension of Simple Paragraphs (% 80 Accuracy (0-100)) Comprehension of Functional Reading 50 Materials Overall Reading Comprehension Ability mild/mod Verbal Expression Automatic Cued Speech (% Accuracy (0-100 100 )) Open Ended Cued Speech (% Accuracy (0- 100 100)) WH Questions (% Accuracy (0-100)) 80 Confrontational Naming (% Accuracy (0- 100 100)) Confrontational Naming Comments distortions interfere Comments Related to Verbal Expression fair to good recall; however, intelligibility is moderately to severely impaired related to distortions, substitutions due to apraxia. In sentence formation given a sentence, intelligibility was too impaired to determine adequacy of the sentence. -divergent naming: distortions , independently used slow speech to improve intelligibility. Very slow but recall was related to speech versus naming ability. Apraxia Evaluation Apraxia Evaluation Oral Volitional Movement (%) 100 Oral Volitional Comments pt was able to recognize errors and self correct. Imitation of Single Sounds (%) 96 Imitation of Single Sounds Comments substituted /d/ for /j/ Automatic Speech (%) 100 Imitation of One-Syllable Words (%) 100 Imitation of One-Syllable Word Comments did not substitute d for j but a slight note of a vowel distortion was exhibited Imitation of Bi-Syllable Words (%) 100 Imitation of Multi-Syllable Words (%) 60 Imitation of Multi-Syllable Word distortions, substitutions and Comments vowel errors Diadokokinetic Rates Accuracy Precise,Rate Normal, Rhyth
--- NOTE | 2021-02-02 08:35 | PCSTNOTE ---
This treatment is being continued on visit number [id number]. Please see documentation on both accounts to view progress. Completed interventions, outcomes, and problems have been marked as Inactive to facilitate the copying of the Care plan routine for recurring accounts.
== END 2021-01-26 08:15 | disposition home or self-care (01) ==
LOC: ANHST 12:30
PROVIDERS: PCP Family Medicine; Visit Provider Family Medicine
DX: I63.511 Cerebral infarction due to unspecified occlusion or stenosis of right middle cerebral artery (principal); I69.391 Dysphagia following cerebral infarction
CPT/HCPCS: 92507; 92523; 97014; 97110; 97112; 97116; 97161; 97166; 97530; G0283

== ENCOUNTER 2021-02-02 09:39 | Outpatient (CLI) | payer BC, SELFPAY ==
[2021-02-02 10:12] LABS: Alanine Aminotransferase 49 U/L (4-50); Albumin Level 4.5 g/dL (3.5-5.1); Alkaline Phosphatase 81 U/L (38-126); Anion Gap 10 mmol/L (8-16); Aspartate Amino Transferase 37 U/L (17-59); Bilirubin,Total 0.5 mg/dL (0.2-1.3); Blood Urea Nitrogen 16 mg/dL (9-20); Calcium 9.7 mg/dL (8.4-10.2); Carbon Dioxide 24 mmol/L (22-30); Chloride 106 mmol/L (98-107); Estimated Glomerular Filt Rate > 60; Glucose 161 mg/dL (65-110); Sodium 140 mmol/L (137-145)
[2021-02-02 11:37] LABS: Thyroid Stimulating Hormone Reflex 0.062 uIU/mL (0.465-4.68)
[2021-02-02 13:09] LABS: Free T4 Free Thyroxine Reflex 1.28 ng/dL (0.78-2.19)
[2021-02-02 21:55] LABS: Total Triiodothyronine (T3) 1.03 NG/ML (0.97-1.69)
== END 2021-02-02 09:40 | disposition home or self-care (01) ==
LOC: ANHLAB 09:42
PROVIDERS: PCP Family Medicine; Visit Provider Family Medicine
DX: E78.5 Hyperlipidemia, unspecified (principal); E11.9 Type 2 diabetes mellitus without complications; E03.9 Hypothyroidism, unspecified
CPT/HCPCS: 36415; 80053; 83036; 84439; 84443; 84480

== ENCOUNTER 2021-03-06 12:30 | Outpatient (RCR) | payer BC, SELFPAY ==
[2021-01-26 08:16] VITALS: BP_SYST 90
--- NOTE | 2021-02-02 08:35 | PCSTNOTE ---
The treatment documented on this account is a continuation of the treatment documented on visit number [id number]. Please see documentation on both accounts to view progress. The Plan of Care has been transitioned and updated within the new V#. I have addressed and agree with the discipline specific Problems, Interventions, and Goals for the current certification period. Completed interventions, outcomes, and problems have been marked as Inactive to facilitate the copying of the Care plan routine for recurring accounts.
--- NOTE | 2021-02-02 08:37 | PCSTNOTE ---
Copy of Previous Re Evaluation from 01/05/21: Osmani Harden Male : 1960 Emr# [id number] 01/05/21 13:52 - ST OP Evaluation by Eliane Pryor, BETSY Acct Num: [id number] : 1960 Patient Age: 60 SPEECH THERAPY RE EVALUATION AND PLAN OF CARE UPDATE: Thank you for referring Osmani Harden to [facility].? The patient is scheduled to be seen for therapy?2x/week for 4 weeks. Please review, sign, date and return this plan of care LIZZIE. I agree with and certify that the following plan of care is medically necessary. Referring Physician Date Attending Provider: Lebron Goff MD Language Evaluation Auditory Comprehension Auditory Comprehension of Moderate 100 Paragraphs (% Accuracy (0-100)) Auditory Comprehension of Complex 100 Paragraphs (% Accuracy (0-100)) Additional Auditory Comprehension within functional limits; no Comments further goals at this time Reading Comprehension Comprehension of Simple Paragraphs (% 80 Accuracy (0-100)) Comprehension of Functional Reading 50 Materials Overall Reading Comprehension Ability mild/mod Verbal Expression Automatic Cued Speech (% Accuracy (0-100 100 )) Open Ended Cued Speech (% Accuracy (0- 100 100)) WH Questions (% Accuracy (0-100)) 80 Confrontational Naming (% Accuracy (0- 100 100)) Confrontational Naming Comments distortions interfere Comments Related to Verbal Expression fair to good recall; however, intelligibility is moderately to severely impaired related to distortions, substitutions due to apraxia. In sentence formation given a sentence, intelligibility was too impaired to determine adequacy of the sentence. -divergent naming: distortions , independently used slow speech to improve intelligibility. Very slow but recall was related to speech versus naming ability. Apraxia Evaluation Apraxia Evaluation Oral Volitional Movement (%) 100 Oral Volitional Comments pt was able to recognize errors and self correct. Imitation of Single Sounds (%) 96 Imitation of Single Sounds Comments substituted /d/ for /j/ Automatic Speech (%) 100 Imitation of One-Syllable Words (%) 100 Imitation of One-Syllable Word Comments did not substitute d for j but a slight note of a vowel distortion was exhibited Imitation of Bi-Syllable Words (%) 100 Imitation of Multi-Syllable Words (%) 60 Imitation of Multi-Syllable Word
--- NOTE | 2021-02-02 16:47 | STOPEVAL ---
SPEECH THERAPY PROGRESS NOTE AND PLAN OF CARE UPDATE: Thank you for referring Osmani Harden to [facility].? The patient is scheduled to be seen for therapy? 2x/week for 4 weeks. Please review, sign, date and return this plan of care LIZZIE. I agree with and certify that the following plan of care is medically necessary. Referring Physician Date Attending Provider: Lebron Goff MD Re-Language Evaluation Auditory Comprehension Response Latency No Impairments Overall Auditory Comprehension Ability No Impairments Reading Comprehension Comprehension of Simple Paragraphs (% 100 Accuracy (0-100)) Comprehension of Moderate Paragraphs (% 90 Accuracy (0-100)) Comprehension of Complex Paragraphs (% 50 Accuracy (0-100)) Verbal Expression Factors Limiting Verbal Function Apraxia Overall Verbal Expression Ability Moderate Deficits Apraxia Evaluation Apraxia Evaluation Conversational Speech Characteristics Anticipatory Errors,Error Awareness,Inability to Correct ,Inconsistent Errors,Numerous Attempts,Perseverative Errors, Receptive/Expressive Gap, Transposition Errors,Visible/ Audible Searching,Voicing Errors,Vowel errors Apraxia Evaluation Comments - Intelligibly and appropriately repeat multi syllable words: 50% accuracy. - Intelligibly and appropriately produces t/d, f/ v and d/j/ phonemes in repetition of minimal pairs or similar pair words with 80% accuracy - Intelligibly respond with a 2 syllable word or 2 single syllable words with 85% accuracy. ST Clinical Summary Clinical Summary ST Clinical Summary Upon completion of re- evaluation, the pt demonstrates improvement in the areas of reading comprehension and verbal expression. Currently mild impairment in reading comprehension and moderate impairment in verbal expression is exhibited; auditory comprehension remains within functional limits as per previous assessment. Reading comprehension: pt
--- NOTE | 2021-03-01 14:37 | PCSTNOTE ---
Patient called & cancelled scheduled appointment this date due to illness in the family
--- NOTE | 2021-03-06 14:18 | STOPEVAL ---
SPEECH THERAPY PROGRESS NOTE AND PLAN OF CARE UPDATE: Thank you for referring Osmani Harden to [facility].? The patient is scheduled to be seen for therapy? 2x/week for 4 weeks. Please review, sign, date and return this plan of care LIZZIE. I agree with and certify that the following plan of care is medically necessary. Referring Physician Date Attending Provider: Lebron Goff MD *Re-evaluation Language Evaluation Reading Comprehension Comprehension of Complex Paragraphs (% 77 Accuracy (0-100)) Comments Related to Reading short term goal achieved;no Comprehension longer to wishes to work on reading Apraxia Evaluation Apraxia Evaluation Imitation of Bi-Syllable Words (%) 100 Diadokokinetic Rates Accuracy Precise,Rate Normal, Rhythm Regular Sound Sequencing (%) 40 Imitating Sentences Comments 4 word sentence imitation: 90% with max visual cues using a modified version of MACIEL; In 5 word sentence imitation, distortions and errors increase with accuracy at approximately 50% accuracy Conversational Speech Characteristics Anticipatory Errors,Error Awareness,Inablilty to Correct ,Inconsistent Errors,Numerous Attempts,Perseverative Errors, Receptive/Expressive Gap, Transposition Errors,Visible/ Audible Searching,Voicing Errors,Vowel errors Apraxia Evaluation Comments Fluency and intelligibility was noted to improve with use of melodic intonation therapy. It is recommended ST continue in order to fine tune use of this strategy. Speech Therapy Teaching Speech Therapy Teaching Teaching Topic Swallowing/Communication Topic Component Apraxia As Pertains To Verbal Expression Recipient(s) of Teaching Patient,Spouse Learning Preferences Discussion Barriers to Learning None Readiness to Learn Excellent Teaching Method(s) Demonstration,Discussion,One- On-One Instruction Response(s) to Teaching Verbalizes Understanding Teaching Comments spoke with pt and spouse after session; instructed on need for improved carryover as pt performs well in treatment drills but declines in
--- NOTE | 2021-03-07 17:21 | STOPEVAL ---
SPEECH THERAPY PROGRESS NOTE AND PLAN OF CARE UPDATE: Thank you for referring Osmani Harden to [facility].? The patient is scheduled to be seen for therapy?2x/week for 4 weeks. Please review, sign, date and return this plan of care LIZZIE. I agree with and certify that the following plan of care is medically necessary. Referring Physician Date Attending Provider: Lebron Goff MD Re Evaluation: Language Evaluation Reading Comprehension Comprehension of Complex Paragraphs (% 77 Accuracy (0-100)) Comments Related to Reading short term goal achieved;no Comprehension longer to wishes to work on reading Apraxia Evaluation Apraxia Evaluation Imitation of Bi-Syllable Words (%) 100 Diadokokinetic Rates Accuracy Precise,Rate Normal, Rhythm Regular Sound Sequencing (%) 40 Imitating Sentences Comments 4 word sentence imitation: 90% with max visual cues using a modified version of MACIEL; In 5 word sentence imitation, distortions and errors increase with accuracy at approximately 50% Conversational Speech Characteristics Anticipatory Errors,Error Awareness,Inability to Correct ,Inconsistent Errors,Numerous Attempts,Perseverative Errors, Receptive/Expressive Gap, Transposition Errors,Visible/ Audible Searching,Voicing Errors,Vowel errors Apraxia Evaluation Comments Fluency and intelligibility was noted to improve with use of melodic intonation therapy. It is recommended ST continue in order to fine tune use of this strategy. Speech Therapy Teaching Speech Therapy Teaching Teaching Topic Swallowing/Communication Topic Component Apraxia As Pertains To Verbal Expression Recipient(s) of Teaching Patient,Spouse Learning Preferences Discussion Barriers to Learning None Readiness to Learn Excellent Teaching Method(s) Demonstration,Discussion,One- On-One Instruction Response(s) to Teaching Verbalizes Understanding Teaching Comments spoke with pt and spouse after session; instructed on need for improved carryover as pt performs well in treatment drills but declines in
--- NOTE | 2021-03-10 09:06 | PCSTNOTE ---
SPEECH THERAPY DISCHARGE: Attending Provider: Lebron Goff MD Patient:Osmani Harden Date of :1960 This pt was recently seen for a re-evaluation. Results revealed the following: the pt demonstrates improvement in the areas of reading comprehension and verbal expression; however, pt no longer wishes to focus on reading. He states he has improved enough in reading to return to the minimal reading he performs at this time. He desires to focus primarily on fluency, articulatory precision & motor planning. Pt's spouse reports that his speech at home is improving as he is able to fluently & intelligibly verbalize 3-4 word word sentences/phrases. At this time reading and auditory comprehension is within functional limits. 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 Word retrieval is within functional limits. Written expression is not of focus at this time due to pt's right hand dominant weakness. ST was recommended to continue x2/week for 4 weeks. The pt's spouse called to cancel all ST appointments as they are going to receive PT/OT/ST at another facility. PT/OT have already evaluated, treated, & discharged pt from this facility due to decreased progression and plateau. Pt had a total of 28 ST treatments. Thank you for referring this patient to [facility]. Please review, sign, date and return this discharge summary LIZZIE. I have been updated about the patient's current status and I agree with discharge from the above service at this time. Referring Physician Date
== END 2021-04-17 08:45 | disposition home or self-care (01) ==
LOC: ANHST 12:30
PROVIDERS: PCP Family Medicine; Visit Provider Family Medicine
DX: I63.511 Cerebral infarction due to unspecified occlusion or stenosis of right middle cerebral artery (principal); I69.391 Dysphagia following cerebral infarction
CPT/HCPCS: 92507

== ENCOUNTER → 2021-06-12 07:16 | Outpatient (CLI) | payer BC, SELFPAY ==
[2021-06-13 10:57] LABS: SARS-CoV-2 RNA PCR Positive
== END ==
PROVIDERS: PCP Family Medicine; Visit Provider Family Medicine
DX: U07.1 COVID-19 (principal)
CPT/HCPCS: C9803; U0003; U0005